=== PATIENT | male | born 1985 | race Caucasian/White ===

== ENCOUNTER 2022-04-30 03:44 | Emergency (ER) | payer SELFPAY ==
[2022-04-30 03:45] VITALS: BP 148/87; PULSE 72; RESP 16; TEMP 36.9; O2SAT 97; BMI 22.5
--- NOTE | 2022-04-30 04:04 | W.ED.PSYCHS ---
HPI - Psych General: Chief Complaint: Psychiatric Symptoms Stated Complaint: SI, ETOH Time Seen by Provider: 04/30/22 03:48 Source: patient and EMS Mode of arrival: EMS Limitations: no limitations History of Present Illness: 36-year-old male presents with EMS he states he had been drinking tonight states he is having some suicidal thoughts earlier he states he has passing suicidal thoughts often states he is no longer suicidal he does admit to have a loaded gun at home he states that he just gets intoxicated and has his feelings at times he states that he wants to see someone outpatient at this time he states he has never seen anyone's not on any meds. Associated symptoms: Reports depression Review of Systems Const: Denies: fever(s), chills, body aches or change in appetite Eyes: Denies: blurry vision or eye discomfort ENMT: Denies: throat pain or dental pain Card: Denies: chest pain Resp: Denies: dyspnea GI: Denies: abdominal pain, nausea, vomiting or diarrhea : Denies: dysuria Musc: Denies: neck pain or back pain Skin/Breast: Denies: rash Neuro: Denies: headache(s) Psych: Reports: depression Greg/Lymph: Denies: easy bruising All/Imm: Denies: urticaria PFSH ED PFSH: Medical History Depression Social History (Updated 04/30/22 @ 04:06 by Adam Pineda MD) Alcohol intake: current Course Vital Signs: Vital signs: Vital Signs Temperature 98.5 F 04/30/22 03:45 Pulse Rate 72 04/30/22 03:45 Respiratory Rate 16 04/30/22 03:45 Blood Pressure 148/87 04/30/22 03:45 Pulse Oximetry 97 04/30/22 03:45 Oxygen Delivery Me thod 04/30/22 03:45 MDM - Psych Medical Decision Making Patient presents here with depression he is not actively suicidal here I did have patient evaluated by Dr. Hernandez who did a full psych evaluation he feels he does not require inpatient admission but did recommend outpatient follow-up we will get him the crisis centers number we will get him follow-up with [facility] if he has any suicidal thoughts he is return immediately he understands and agrees to the plan. Lab Data 04/30/22 03:57 04/30/22 03:57 Radiology Impressions Chest X-Ray 04/30/22 04:07 IMPRESSION: No acute findings. Laboratory Results WBC 20.0 10^3/uL (4.0-10.0) H 04/30/22 03:57 RBC 5.33 10^6/uL (4.1-5.3) H 04/30/22 03:57 Hgb 16.3 g/dL (11.7-16.6) 04/30/22 03:57 Hct 49.2 % (42.0-52.0) 04/30/22 03:57 MCV 92.3 fl (80-94) 04/30/22 03:57 MCH 30.6 pg (28.0-34.0) 04/30/22 03:57 MCHC 33.1 g/dL (30.0-36.0) 04/30/22 03:57 RDW 13.2 % (12.1-15.1) 04/30/22 03:57 Plt Count 359 10^3/cmm (130-400) 04/30/22 03:57 MPV 10.0 fL (7.4-10.4) 04/30/22 03:57 Neut % (Auto) 76.6 % 04/30/22 03:57 Lymph % (Auto) 15.1 % 04/30/22 03:57 [place] % (Auto) 6.6 % 04/30/22 03:57 Eos % (Auto) 0.8 % 04/30/22 03:57 Baso % (Auto) 0.5 % 04/30/22 03:57 Neut # (Auto) 15.33 10^3/uL (1.8-7.7) H 04/30/22 03:57 Lymph # (Auto) 3.0 10^3/uL (0.8-4.8) 04/30/22 03:57 [place] # (Auto) 1.3 10^3/uL (0.2-0.9) H 04/30/22 03:57 Eos # (Auto) 0.2 10^3/uL (0.0-0.8) 04/30/22 03:57 Baso # (Auto) 0.1 10^3/uL (0.0-0.1) 04/30/22 03:57 Nucleated RBC % (auto) 0 % 04/30/22 03:57 Nucleated RBCs # 0.0 /100WBC 04/30/22 03:57 Sodium 140 mmol/L (136-145) 04/30/22 03:57 Potassium 4.3 mmol/L (3.5-5.1) 04/30/22 03:57 Chloride 104 mmol/L (98-107) 04/30/22 03:57 Carbon Dioxide 22 mmol/L (22-29) 04/30/22 03:57 Anion Gap 18.3 (5-19) 04/30/22 03:57 BUN 9 mg/dL (6-20) 04/30/22 03:57 Creatinine 0.8 mg/dL (0.7-1.2) 04/30/22 03:57 GFR Calculation 110.7 mL/min (90-130) 04/30/22 03:57 Glucose 106 mg/dL (65-115) 04/30/22 03:57 Calculated Osmolality 289 mOsm/kg (285-295) 04/30/22 03:57 Calcium 9.0 mg/dL (8.5-10.5) 04/30/22 03:57 Total Bilirubin 0.2 mg/dL (0.15-1.2) 04/30/22 03:57 AST 30 U/L (0-40) 04/30/22 03:57 ALT 25 U/L (0-41) 04/30/22 03:57 Alkaline Phosphatase 102 U/L (40-130) 04/30/22 03:57 Total Protein 7.8 g/dL (6.6-8.7) 04/30/22 03:57 Albumin 4.7 g/dL (3.5-5.2) 04/30/22 03:57 Globulin 3.1 g/dL (1.3-4.6) 04/30/22 03:57 Salicylates < 0.3 mg/dL (3-10) L 04/30/22 03:57 Acetaminophen < 5.0 ug/mL (10-30) L 04/30/22 03:57 Ethyl Alcohol 153 mg/dL (0-10) H 04/30/22 03:57 Discharge Plan Discharge Patient Disposition: Home Clinical Impression: Depression Discharge Orders: Discharge ED (Routine); Ordered 04/30/22 Ordered By: Adam Pineda Referrals: [facility], [Staff Physician] - 1-3 days Discharge Diet: Advance as tolerated Discharge Activity: Resume usual activity Patient Instructions: Depression (ED) Coding Level of Care Code ED Nuclear Medicine Officer for Xu Paez
[2022-04-30 04:05] LABS: Basophils # 0.1 10^3/uL (0.0-0.1); Basophils % 0.5 %; Eosinophils # 0.2 10^3/uL (0.0-0.8); Eosinophils % 0.8 %; Hematocrit 49.2 % (42.0-52.0); Hemoglobin 16.3 g/dL (11.7-16.6); Lymphocytes % 15.1 %; Mean Corpuscular HGB Conc 33.1 g/dL (30.0-36.0); Mean Corpuscular Hemoglobin 30.6 pg (28.0-34.0); Mean Corpuscular Volume 92.3 fl (80-94); Monocytes # 1.3 10^3/uL (0.2-0.9); Monocytes % 6.6 %; Neutrophils # 15.33 10^3/uL (1.8-7.7); Neutrophils % 76.6 %; Nucleated Red Blood Cells % 0 %; Platelet Count 359 10^3/cmm (130-400); Red Blood Count 5.33 10^6/uL (4.1-5.3); Red Cell Distribution Width 13.2 % (12.1-15.1)
--- NOTE | 2022-04-30 04:07 | XRR_ITS ---
PROCEDURE INFORMATION: Exam: XR Chest Exam date and time: 04/30/2022 4:10 AM Age: 36 years old Clinical indication: Screening exam; Other screening; Patient HX: Medical clearance for psych transfer. Alcohol withdrawal. TECHNIQUE: Imaging protocol: Radiologic exam of the chest. Views: 1 view. COMPARISON: No relevant prior studies available. FINDINGS: Lungs: Unremarkable. No consolidation. Pleural spaces: Unremarkable. No pleural effusion. No pneumothorax. Heart/Mediastinum: Unremarkable. No cardiomegaly. Diaphragm: Mild right hemidiaphragm elevation. Bones/joints: Unremarkable. XR/XR chest 1V portable [id number] IMPRESSION: No acute findings.
[2022-04-30] MEDS: nicotine 21 mg Patch 1 PATCH TRANSDERMA (04:19)
[2022-04-30 04:25] LABS: Alanine Aminotransferase 25 U/L (0-41); Albumin Level 4.7 g/dL (3.5-5.2); Alcohol Level 153 mg/dL (0-10); Alkaline Phosphatase 102 U/L (40-130); Anion Gap 18.3 (5-19); Aspartate Amino Transferase 30 U/L (0-40); Blood Urea Nitrogen 9 mg/dL (6-20); Carbon Dioxide 22 mmol/L (22-29); Chloride 104 mmol/L (98-107); Globulin 3.1 g/dL (1.3-4.6); Glomerular Filtration Rate 110.7 mL/min (90-130); Glucose 106 mg/dL (65-115); Osmolality Calculated 289 mOsm/kg (285-295); Potassium 4.3 mmol/L (3.5-5.1); Sodium 140 mmol/L (136-145); Total Bilirubin 0.2 mg/dL (0.15-1.2); Total Protein 7.8 g/dL (6.6-8.7)
[2022-04-30 04:30] LABS: Acetaminophen < 5.0 ug/mL (10-30); Salicylate < 0.3 mg/dL (3-10)
--- NOTE | 2022-04-30 11:15 | DCPLANNER ---
Addendum entered by Maria Del Carmen Jimenez 05/02/22 14:06: event operations manager received the following message from Arlette at [facility] regarding referral to [facility]: Paperwork has been mailed. From: Maria Del Carmen Jimenez Sent: Saturday, April 30, 2022 11:55 AM To: Arlette Valdivia <[email or web address]> Subject: RE: ER referral to [facility] - MD Thank you From: Arlette Valdivia Sent: Saturday, April 30, 2022 11:53 AM To: Maria Del Carmen Jimenez <[email or web address]> Subject: RE: ER referral to [facility] - MD Sure will From: Maria Del Carmen Jimenez Sent: Saturday, April 30, 2022 11:47 AM To: Arlette Valdivia <[email or web address]> Subject: RE: ER referral to [facility] Not that I can tell can you mail him a letter? From: Arlette Valdivia Sent: Saturday, April 30, 2022 11:18 AM To: Maria Del Carmen Jimenez <[email or web address]> Cc: Fatemeh Fernandez <[email or web address]> Subject: RE: ER referral to [facility] Does Jared have a phone number other than [employer] number? Original Note: event operations manager had message to refer patient to [facility]. event operations manager sent patients information to the scheduling desk at [facility] and also emailed patients information to Arlette Valdivia, cdl program coordinator at [facility]. Patients information will be printed and reviewed. Clinic will call patient and explain how to start services at [facility].
== END 2022-04-30 05:19 | disposition home or self-care (01) ==
PROVIDERS: Emergency Provider Emergency Medicine
DX: F32.A Depression, unspecified (principal)
CPT/HCPCS: 71045; 80053; 80307; 85025; 99283